=== PATIENT | female | born 1985 | race Two or more races ===

== ENCOUNTER 2022-01-01 17:31 | Emergency (ER) | payer OTHER ==
[~2022-01-01] VITALS: Ht 160 cm; Wt 68.9 kg
== END 2022-01-01 22:46 | disposition home or self-care (01) ==
LOC: ER 17:31
DX: S90.812A Abrasion, left foot, initial encounter (principal); X58.XXXA Exposure to other specified factors, initial encounter; Y93.9 Activity, unspecified; Y92.9 Unspecified place or not applicable; Y99.9 Unspecified external cause status